=== PATIENT | female | born 1960 | race Two or more races ===

== ENCOUNTER 2016-06-01 12:03 | Emergency (ER) | payer OTHER ==
[2016-06-01 12:08] VITALS: BP 152/86; PULSE 72; TEMP 98; BMI 40.4
[2016-06-01] MEDS ORDERED: IBUPROFEN 400 MG TABLET (FP) PO ONE ×2 (13:06→13:17)
--- NOTE | 2016-06-01 13:18 | PDOC ---
History of Present Illness - General Chief Complaint: Pain Stated Complaint: PAIN Time Seen by Provider: 06/01/16 12:18 History Source: Patient - History of Present Illness Occurred: reports: this morning Lower Extremity Pain Location: left: ankle Method of Injury: Yes: fell Past History - Past Medical History Allergies/Adverse Reactions: Allergies Allergy/AdvReac Type Severity Reaction Status Date / Time codeine Allergy Verified 06/01/16 12:08 Home Medications: Ambulatory Orders Amlodipine Besylate 10 mg PO DAILY 06/01/16 Glipizide 5 mg PO DAILY 06/01/16 Losartan Potassium 25 mg PO DAILY 06/01/16 Blanca-3 Acid Ethyl Esters [Lovaza] 1 gm PO DAILY 06/01/16 Diabetes: Yes HTN: Yes Thyroid Disease: Yes Other medical history: denies - Immunization History Immunization Up to Date: Yes - Psycho/Social/Smoking Cessation Hx Suicidal Ideation: No Smoking History: Never smoked Information on smoking cessation initiated: No Substance Use Type: None Review of Systems - Review of Systems Musculoskeletal: Yes: Joint Pain, Joint Swelling *Physical Exam - Vital Signs Last Vital Signs Temp Pulse Resp BP Pulse Ox 98 F 72 20 152/86 95 06/01/16 12:04 06/01/16 12:04 06/01/16 12:04 06/01/16 12:04 06/01/16 12:04 - Physical Exam General Appearance: Yes: Appropriately Dressed. No: Apparent Distress HEENT: positive: Normal Voice Neck: positive: Supple Respiratory/Chest: negative: Respiratory Distress Musculoskeletal: positive: Other (minimal ttp to L lower back, L shoulder without swelling or ttp, FROMI) Extremity: positive: Swelling (minimal swelling to lateral malleolus of L ankle , no sig ttp) Integumentary: positive: Dry, Warm Neurologic: positive: Fully Oriented, Alert, Normal Mood/Affect ED Treatment Course - RADIOLOGY Radiology Studies Ordered: Category Date Time Status ANKLE & FOOT-LEFT* [RAD] Stat Radiology 06/01/16 13:06 Ordered Medical Decision Making - Medical Decision Making 06/01/16 13:11 56 yo F, h/o HTN, DM, hypothyroid, p/w L ankle pain and swelling after trip and fall at work this am. Able to bear weight but painful. Also reports L lower back and L shoulder pain See exam Multiple injuries s/p fall this am No e/o serious injuries on exam M/l soft tissues -XR ankle given swelling -pain control in ED 06/01/16 13:55 XR neg for fx. Dc w/ pain control as needed *DC/Admit/Observation/Transfer Diagnosis at time of Disposition: Ankle sprain Qualifiers: Encounter type: initial encounter Involved ligament of ankle: unspecified ligament Laterality: left Qualified Code(s): S93.402A - Sprain of unspecified ligament of left ankle, initial encounter - Discharge Dispostion Disposition: HOME Condition at time of disposition: Good - Referrals Referrals: Petra Montelongo [Primary Care Provider] - - Patient Instructions Printed Discharge Instructions: DI for Ankle Sprain Additional Instructions: Take motrin as needed for pain
== END 2016-06-01 14:00 | disposition home or self-care (01) ==
LOC: JERFT 12:03
DX: S93.402A Sprain of unspecified ligament of left ankle, initial encounter (principal); W01.0XXA Fall on same level from slipping, tripping and stumbling without subsequent striking against object, initial encounter; Y93.F9 Activity, other caregiving; Y92.89 Other specified places as the place of occurrence of the external cause; Y99.0 Civilian activity done for income or pay
CPT/HCPCS: 73610-TC-LT; 73630-TC-LT; 99281-25

== ENCOUNTER 2018-05-03 12:42 | Emergency (ER) | payer OTHER ==
[2018-05-03 12:58] VITALS: BP 161/84; PULSE 78; TEMP 98.6; BMI 36.6
[2018-05-03] MEDS ORDERED: KETOROLAC TROMETHAMINE 30 MG/1 ML VIAL IVPUSH STA (13:33)
[2018-05-03] MEDS ORDERED: SODIUM CHLORIDE 1,000 ML IV STA (13:33)
[2018-05-03] MEDS ORDERED: ONDANSETRON 4 MG/2 ML VIAL IVPUSH ONE (13:33)
[2018-05-03] MEDS ORDERED: PANTOPRAZOLE SODIUM 40 MG in SODIUM CHLORIDE 100 ML IVPB ONE (13:33)
[2018-05-03] MEDS ORDERED: PANTOPRAZOLE SODIUM 40 MG/100 ML BAG IVPB ONE (13:53)
[2018-05-03] MEDS ORDERED: ONDANSETRON 4 MG/2 ML VIAL ONE ×2 (13:54→13:58)
[2018-05-03] MEDS ORDERED: KETOROLAC TROMETHAMINE 30 MG/1 ML VIAL ONE (13:54)
--- NOTE | 2018-05-03 14:12 | PDOC ---
History of Present Illness - General Chief Complaint: Pain Stated Complaint: HEADACHE/DIARRHEA Time Seen by Provider: 05/03/18 13:29 History Source: Patient Exam Limitations: No Limitations - History of Present Illness Travel History: No Initial Comments: 05/03/18 14:07 58-year-old female presents to the emergency room with complaints of upper periumbilical cramping associated mild nausea and approximately 10 episodes of diarrhea over the past 3 days. Patient denies fever, chills, urinary complaints abdominal distention, history of diverticulitis or colitis. Patient states did not take anything for the above and decided come to the ER for evaluation. Timing/Duration: reports: getting worse Quality: reports: mild, cramping Abdominal Pain Onset Location: reports: periumbilical (upper) Pain Radiation: reports: no radiation Activities at Onset: reports: none Aggravating Factors: improves with: None Alleviating Factors: improves with: None Past History - Travel Traveled outside of the country in the last 30 days: No Close contact w/someone who was outside of country & ill: No - Past Medical History Allergies/Adverse Reactions: Allergies Allergy/AdvReac Type Severity Reaction Status Date / Time codeine Allergy Verified 06/01/16 12:08 Home Medications: Ambulatory Orders Amlodipine Besylate 10 mg PO DAILY 06/01/16 Glipizide 10 mg PO BID 06/01/16 Clonidine HCl [Catapres] 0 mg PO DAILY 05/03/18 Levothyroxine Sodium [Synthroid] 200 mcg PO DAILY 05/03/18 Liraglutide [Victoza -] 1.8 mg SQ DAILY@0700 05/03/18 Diabetes: Yes HTN: Yes Thyroid Disease: Yes - Immunization History Immunization Up to Date: Yes - Suicide/Smoking/Psychosocial Hx Smoking History: Never smoked Have you smoked in the past 12 months: No Information on smoking cessation initiated: No Hx Alcohol Use: No Drug/Substance Use Hx: No Substance Use Type: None Patient Lives Alone: No Lives with/in: spouse/SO Review of Systems - Review of Systems Able to Perform ROS?: Yes Constitutional: Yes: Weakness HEENTM: No: Symptoms Reported Respiratory: No: Symptoms reported Cardiac (ROS): No: Lightheadedness ABD/GI: Yes: Diarrhea, Nausea, Abdominal cramping Musculoskeletal: No: Symptoms Reported Integumentary: No: Symptoms Reported Neurological: Yes: Weakness. No: Dizziness Endocrine: No: Symptoms Reported Hematologic/Lymphatic: No: Symptoms Reported *Physical Exam - Vital Signs Last Vital Signs Temp Pulse Resp BP Pulse Ox 98.6 F 78 20 161/84 98 05/03/18 12:55 05/03/18 12:55 05/03/18 12:55 05/03/18 12:55 05/03/18 12:55 - Physical Exam General Appearance: Yes: Nourished, Appropriately Dressed. No: Apparent Distress HEENT: negative: Pale Conjunctivae Neck: positive: Supple Respiratory/Chest: positive: Lungs Clear, Normal Breath Sounds. negative: Respiratory Distress, Accessory Muscle Use Cardiovascular: positive: Regular Rhythm, Regular Rate. negative: Murmur Gastrointestinal/Abdominal: positive: Normal Bowel Sounds, Soft, Tenderness ( uppeer periumbilical) Musculoskeletal: negative: CVA Tenderness Extremity: positive: Normal Capillary Refill. negative: Pedal Edema Integumentary: positive: Normal Color, Warm, Moist Neurologic: positive: Normal Mood/Affect, Motor Strength 5/5 (ambulatory) Moderate Sedation - Procedure Monitoring Vital Signs: Procedure Monitoring Vital Signs Temperature 98.6 F 05/03/18 12:55 Pulse Rate 78 05/03/18 12:55 Respiratory Rate 20 05/03/18 12:55 Blood Pressure 161/84 05/03/18 12:55 O2 Sat by Pulse Oximetry (%) 98 05/03/18 12:55 ED Treatment Course - LABORATORY CBC & Chemistry Diagram: 05/03/18 13:51 05/03/18 13:51 - RADIOLOGY Radiology Studies Ordered: Category Date Time Status ABDOMEN & PELVIS CT WITH CONTR [CT] Stat CT Scan 05/03/18 13:31 Ordered Medical Decision Making - Medical Decision Making 05/03/18 14:10 Chief complaint: Upper periumbilical cramping with nausea diarrhea 3 days. Patient had complained of generalized mild weakness without dizziness or fever. Exam: Upper periumbilical tenderness without distention or rebound tenderness. Plan: Labs, urine, IV Zofran protonic's Toradol and IV fluids ordered along with abdominal/pelvic CT with IV contrast 05/03/18 18:01 Laboratory Tests 05/03/18 05/03/18 05/03/18 13:45 13:51 13:51 WBC 8.3 Hgb 14.4 Hct 41.0 Monocytes % 2.9 L Eosinophils % 6.1 H Sodium 136 Potassium 4.0 Chloride 105 Carbon Dioxide 26 Anion Gap 5 L BUN 15 Creatinine 0.7 Creat Clearance w eGFR > 60 Random Glucose 212 H Calcium 9.0 Magnesium 2.2 Total Bilirubin 0.5 AST 17 ALT 32 Alkaline Phosphatase 139 H Total Protein 7.4 Albumin 3.8 Lipase 265 Urine Ketones Negative Urine Nitrite Negative Ur Leukocyte Esterase Negative 05/03/18 18:04 CT shows a trace amount of intraperitoneal fluid seen within the right pericolic at the level of the mid pelvis. Mild increased mesenteric density suggestive of soft tissue edema is seen with the right lower pelvis ventrally. There is associated mild nonspecific mesenteric density in the same region. There is no evidence of acute diverticulitis or definitive colonic wall thickening or edema. Multiple uterine fibroids w/ uterus measuring 20 x 17 x 12 in overall size. Minimal to mild increased mesenteric density is seen centrally. This appearance on CT he is usually ofclinical significance. The patient states to me much better after receiving medication. Patient is a diabetic concerning for early infection. Patient will be discharged home with Flagyl along with Zofran for nausea. Patient will be given copy of lab work including CT to that she may bring to primary care physician. Patient states has not calming EGD and colonoscopy with her [facility] enterologist who she cannot recall his name but is located on [facility]. *DC/Admit/Observation/Transfer Diagnosis at time of Disposition: Diarrhea - Discharge Dispostion Disposition: HOME Condition at time of disposition: Improved - Referrals - Patient Instructions Printed Discharge Instructions: DI for Diarrhea and Traveler's Diarrhea -- Adult Additional Instructions: Please bring copy of her lab work and CAT scan results with you to your primary care doctor and gastrologist Take medication as prescribed If your symptoms worsen including elevated glucose, fever or severe abdominal pain or inability to tolerate by mouth please return to the nearest ED. - Post Discharge Activity
[2018-05-03 14:21] LABS: URINE APPEARANCE CLEAR; URINE BILIRUBIN NEGATIVE (<2.0 mg/dL); URINE COLOR LTYELLOW; URINE GLUCOSE (UA) NEGATIVE (NEGATIVE); URINE KETONE NEGATIVE (NEGATIVE); URINE LEUK ESTERASE NEGATIVE (NEGATIVE); URINE NITRITE NEGATIVE (NEGATIVE); URINE PROTEIN NEGATIVE (NEGATIVE); URINE UROBILINOGEN NEGATIVE mg/dL (0.2-1.0)
[2018-05-03 14:22] LABS: BASO % 0.7 % (0-2.0); EOS % 6.1 % (0-4.5); HEMOGLOBIN 14.4 GM/dL (10.7-15.3); LYMPH % 23.8 % (8-40); MCH 31.8 pg (25.7-33.7); MCHC 35.2 g/dl (32.0-36.0); MEAN CELL VOLUME 90.3 fl (80-96); MEAN PLT VOLUME 9.4 fl (7.5-11.1); MONO % 2.9 % (3.8-10.2); NEUT % 66.5 % (42.8-82.8); PLATELET COUNT 224 K/MM3 (134-434); RBC 4.53 M/mm3 (3.60-5.2); RDW 13.6 % (11.6-15.6); WHITE BLOOD COUNT 8.3 K/mm3 (4.0-10.0)
[2018-05-03 14:48] LABS: ALBUMIN 3.8 g/dl (3.4-5.0); ALK PHOS 139 U/L (45-117); ANION GAP 5 MMOL/L (8-16); BILIRUBIN,TOTAL 0.5 mg/dL (0.2-1); BLOOD UREA NITROGEN 15 mg/dL (7-18); CHLORIDE 105 mmol/L (98-107); CO2 26 mmol/L (21-32); CREATININE 0.7 mg/dL (0.55-1.3); GLUCOSE,RANDOM 212 mg/dL (74-106); LIPASE 265 U/L (73-393); MAGNESIUM 2.2 mg/dL (1.8-2.4); SGOT/AST 17 U/L (15-37); SGPT/ALT 32 U/L (13-61); SODIUM 136 mmol/L (136-145); TOT PROT 7.4 g/dl (6.4-8.2)
== END 2018-05-03 18:00 | disposition home or self-care (01) ==
LOC: JER 12:42
PROC: 3E033GC Introduction of Other Therapeutic Substance into Peripheral Vein, Percutaneous Approach (ICD-10-PCS; principal; 2018-05-03)
PROC: 3E033GC Introduction of Other Therapeutic Substance into Peripheral Vein, Percutaneous Approach (ICD-10-PCS; 2018-05-03)
PROC: 3E033NZ Introduction of Analgesics, Hypnotics, Sedatives into Peripheral Vein, Percutaneous Approach (ICD-10-PCS; 2018-05-03)
DX: R19.7 Diarrhea, unspecified (principal); I10 Essential (primary) hypertension; E78.00 Pure hypercholesterolemia, unspecified; E11.9 Type 2 diabetes mellitus without complications; Z79.84 Long term (current) use of oral hypoglycemic drugs
CPT/HCPCS: 36415; 74177-TC; 80053; 81003; 83690; 83735; 85025; 87086; 96365; 96375; 99281-25; J7030

== ENCOUNTER → 2018-08-01 | Emergency (ER) | payer OTHER | END | disposition home or self-care (01) | LOC: JER 21:09 ==

== ENCOUNTER 2022-03-25 20:17 | Emergency (ER) | payer OTHER ==
[2022-03-25 20:34] VITALS: BP 147/83; PULSE 89; RESP 20; TEMP 98.5; BMI 36.6
[2022-03-25] MEDS ORDERED: DIPHTH,PERTUSS(ACELL),TET 0.5 ML DISP.SYRIN IM ONE ×2 (22:12→22:13)
== END 2022-03-25 22:33 | disposition home or self-care (01) ==
LOC: JERFT 20:17 → JER 20:17 → JERFT 22:33
PROC: 0HQGXZZ Repair Left Hand Skin, External Approach (ICD-10-PCS; principal; 2022-03-25)
PROC: 3E0234Z Introduction of Serum, Toxoid and Vaccine into Muscle, Percutaneous Approach (ICD-10-PCS; 2022-03-25)
DX: S61.215A Laceration without foreign body of left ring finger without damage to nail, initial encounter (principal); W26.0XXA Contact with knife, initial encounter
CPT/HCPCS: 90715; 99282-25